=== PATIENT | female | born 1975 ===

== ENCOUNTER 2018-04-06 08:27 | Outpatient (CLI) | payer OTHER ==
[~2018-04-06 08:27] MED LIST: KLONOPIN0.5 MG/TAB PO; PAXIL CR25 MG PO
== END 2018-04-06 08:39 | disposition home or self-care (01) ==
LOC: SONOGRAMA 08:27
DX: Z12.31 Encounter for screening mammogram for malignant neoplasm of breast (principal); Z87.898 Personal history of other specified conditions; N64.89 Other specified disorders of breast; D68.8 Other specified coagulation defects; M79.81 Nontraumatic hematoma of soft tissue; F33.2 Major depressive disorder, recurrent severe without psychotic features; E78.2 Mixed hyperlipidemia

== ENCOUNTER 2018-04-06 10:20 | Outpatient (CLI) | payer OTHER | END 2018-04-06 10:30 | disposition home or self-care (01) | LOC: LAB 10:20 | DX: D68.8 Other specified coagulation defects (principal); M79.81 Nontraumatic hematoma of soft tissue; E78.2 Mixed hyperlipidemia; F33.2 Major depressive disorder, recurrent severe without psychotic features; D50.8 Other iron deficiency anemias; D51.8 Other vitamin B12 deficiency anemias; I10 Essential (primary) hypertension; D68.0 Von Willebrand disease ==

== ENCOUNTER 2018-05-09 09:13 | Outpatient (CLI) | payer OTHER | END 2018-05-09 15:07 | disposition home or self-care (01) | LOC: RAD 09:13 → LAB 09:13 | DX: M15.0 Primary generalized (osteo)arthritis (principal); D51.1 Vitamin B12 deficiency anemia due to selective vitamin B12 malabsorption with proteinuria; D51.3 Other dietary vitamin B12 deficiency anemia; D68.8 Other specified coagulation defects; D52.0 Dietary folate deficiency anemia; E78.2 Mixed hyperlipidemia; F33.2 Major depressive disorder, recurrent severe without psychotic features; M79.81 Nontraumatic hematoma of soft tissue; D50.8 Other iron deficiency anemias; D51.8 Other vitamin B12 deficiency anemias; I10 Essential (primary) hypertension; D55.0 Anemia due to glucose-6-phosphate dehydrogenase [G6PD] deficiency; K90.89 Other intestinal malabsorption; D51.0 Vitamin B12 deficiency anemia due to intrinsic factor deficiency; E03.8 Other specified hypothyroidism; E06.3 Autoimmune thyroiditis ==

== ENCOUNTER 2018-05-09 10:17 | Outpatient (CLI) | payer OTHER | END 2018-05-09 10:19 | disposition home or self-care (01) | LOC: SONOGRAMA 10:17 | DX: E04.8 Other specified nontoxic goiter (principal); D51.1 Vitamin B12 deficiency anemia due to selective vitamin B12 malabsorption with proteinuria; D51.3 Other dietary vitamin B12 deficiency anemia; D52.8 Other folate deficiency anemias; D68.8 Other specified coagulation defects; D52.0 Dietary folate deficiency anemia; E78.2 Mixed hyperlipidemia; F33.2 Major depressive disorder, recurrent severe without psychotic features; M79.81 Nontraumatic hematoma of soft tissue; E03.8 Other specified hypothyroidism ==